=== PATIENT | female | born 1955 | race Caucasian/White ===

== ENCOUNTER → 2025-10-24 13:43 | Outpatient (CLI) | payer MEDICARE, OTHER, SELFPAY ==
--- NOTE | 2025-10-24 13:46 | DI.NM.S_ITS ---
PROCEDURE: [place] RUDY PERF SPECT R&S PHARM Rest and pharmacological stress myocardial perfusion SPECT with gated imaging and ejection fraction RADIOPHARMACEUTICAL: 23.8 mCi Tc-99m tetrafosmin IV at rest and 26 mCi Tc-99m tetrafosmin IV at peak effect of pharmacological stress. [id number] was performed. INDICATIONS: chest pain TECHNIQUE: Radiopharmaceutical was injected at peak stress test, and also at rest. SPECT images were obtained. SPECT myocardial perfusion images were displayed in short axis, horizontal long axis, and vertical long axis views. Gated images were reviewed using [employer] software. COMPARISON: None. CARDIAC STRESS: A pharmacologic stress test was performed under the supervision of an attending staff, using an infusion of lexiscan 0.4mg IV X1. Hemodynamic data: There is normal blood pressure and heart rate response to pharmacologic stress. Symptoms: The patient denied anginal chest pain. Aminophylline: none EKG: No diagnostic changes of ischemia; no ectopy. FINDINGS: Raw data: There is good myocardial uptake of radiotracer. No significant motion artifacts. Qxmk-oe-qswfq ratio is 0.22 (normal is less than 0.38 for tetrafosmin tracer). Left ventricle function: Gated images demonstrate normal left ventricular wall thickening. No segmental wall motion abnormalities. No transient ischemic dilation; TID is 0.63 (normal less than 1.3). Left ventricle resting end diastolic volume is 105 mL. Left ventricle stress ejection fraction is 84%; normal range is above 45%. Myocardial perfusion: There is normal distribution of activity in the right and left ventricular myocardium. No fixed or reversible perfusion defects. IMPRESSION: Low risk, normal pharm nuclear stress test from inducible ischemia standpoint. 1) No perfusion evidence of ischemia or infarction. 2) Normal left ventricular size, wall motion, and systolic function (EF post stress 84%). 3) No angina during the study. 4) No diagnostic ST changes during exercise or recovery. 5) Mildly reduced exercise tolerance (7.0METs, WILLIAM +16%). Since target heart rate wasn't reached, study was switched to lexiscan. 6) No prior nuclear stress test available for comparison. Dictated by: Clayton Armendariz MD on 11/03/2025 at 17:02 Approved by: Clayton Armendariz MD on 11/03/2025 at 17:06
== END ==
PROVIDERS: PCP Nurse Practitioner Acute Care; Referring Provider Nurse Practitioner Acute Care; Visit Provider Nurse Practitioner Acute Care
DX: I49.1 Atrial premature depolarization (principal); R07.9 Chest pain, unspecified; R00.2 Palpitations; I12.9 Hypertensive chronic kidney disease with stage 1 through stage 4 chronic kidney disease, or unspecified chronic kidney disease; N18.31 Chronic kidney disease, stage 3a
CPT/HCPCS: 78452; 93017; A9502; J2785